=== PATIENT | female | born 1985 | race Hispanic/Latino ===

== ENCOUNTER 2017-05-22 13:15 | Emergency (ER) | payer SELFPAY | END 2017-05-22 15:13 | disposition home or self-care (01) | LOC: EDH 13:15 | DX: S43.402A Unspecified sprain of left shoulder joint, initial encounter (principal); J45.909 Unspecified asthma, uncomplicated; X58.XXXA Exposure to other specified factors, initial encounter; Y93.61 Activity, american tackle football; Y92.89 Other specified places as the place of occurrence of the external cause; Y99.8 Other external cause status | CPT/HCPCS: 73030 ==

== ENCOUNTER 2017-07-11 15:29 | Emergency (ER) | payer SELFPAY ==
[2017-07-11] MEDS ORDERED: OXYMETAZOLINE HCL SPRAY 15 ML BOTTLE ONE (16:05)
[2017-07-11] MEDS ORDERED: KETOROLAC TROMETHAMINE 30MG/ML ONE (16:05)
== END 2017-07-11 16:17 | disposition home or self-care (01) ==
LOC: EDH 15:29
DX: J01.90 Acute sinusitis, unspecified (principal); R51 Headache; J45.909 Unspecified asthma, uncomplicated
CPT/HCPCS: 96372; 99283; J1885

== ENCOUNTER 2019-03-13 18:09 | Emergency (ER) | payer SELFPAY ==
[2019-03-13] MEDS ORDERED: OCTYL 2-CYANOACRYLATE 1 EACH TP ONE (18:51)
[2019-03-13] MEDS ORDERED: TETANUS/DIPHTHERIA TOXOID [ADULT] 0.5 ML VIAL IM ONE (19:09)
== END 2019-03-13 19:18 | disposition home or self-care (01) ==
LOC: EDH 18:09
DX: S61.211A Laceration without foreign body of left index finger without damage to nail, initial encounter (principal); J45.909 Unspecified asthma, uncomplicated; Z87.891 Personal history of nicotine dependence; Z79.899 Other long term (current) drug therapy; W26.0XXA Contact with knife, initial encounter; Y93.89 Activity, other specified; Y92.89 Other specified places as the place of occurrence of the external cause; Y99.8 Other external cause status
CPT/HCPCS: 12001; 90471; 90714

== ENCOUNTER 2023-04-10 10:45 | Emergency (ER) | payer OTHER ==
[~2023-04-10] VITALS: Ht 160 cm; Wt 81.6 kg
[2023-04-10 10:46] VITALS: BP 112/64; PULSE 80; RESP 16
[2023-04-10 11:31] LABS: RAPID GROUP A STREP negative (NEGATIVE)
[2023-04-10 11:41] LABS: SARS-CoV-2, RNA, NAAT NEGATIVE SARS CoV-2 (NEGATIVE)
[2023-04-10 11:42] LABS: INFLUENZA TYPE A Negative For Type A (NEGATIVE); INFLUENZA TYPE B Negative For Type B (NEGATIVE)
[2023-04-10] MEDS ORDERED: AZEL23SP NS (12:16)
[2023-04-10] MEDS ORDERED: LEVO5TAB29 PO (12:16)
[2023-04-10] MEDS ORDERED: ALBU90AE2 IH (12:16)
== END 2023-04-10 12:49 | disposition home or self-care (01) ==
LOC: EDH 10:45
DX: J01.80 Other acute sinusitis (principal); J45.909 Unspecified asthma, uncomplicated; Z20.822 Contact with and (suspected) exposure to COVID-19; Z90.89 Acquired absence of other organs
CPT/HCPCS: 87635; 87804; 87880